=== PATIENT | male | born 1955 | race African-American/Black ===

== ENCOUNTER → 2017-05-07 | Outpatient (CLI) | payer BC | LOC: SLR 11:00 → EDSEX 11:00 | PROVIDERS: ATTEND Otolaryngology | DX: G47.30 Sleep apnea, unspecified (principal) | CPT/HCPCS: G0399 ==

== ENCOUNTER 2017-11-25 13:37 | Outpatient (CLI) | payer BC ==
--- NOTE | 2017-11-30 13:58 | Mammography Report ---
BILATERAL DIGITAL SCREENING MAMMOGRAM with CAD: 11/25/17 13:37:00 CLINICAL: Routine screening. COMPARISON:12/02/16 FINDINGS: There are scattered areas of fibroglandular density. No mass, architectural distortion or suspicious calcifications. IMPRESSION: No mammographic evidence of malignancy. BI-RADS CATEGORY: 2 -- Benign RECOMMENDATION: Routine mammographic screening in one year. COMMENT: Patient follow-up letters are generated by our [employer] application.
== END 2017-11-25 13:38 | disposition home or self-care (01) ==
LOC: SPVWC 13:37
DX: Z12.31 Encounter for screening mammogram for malignant neoplasm of breast (principal)
CPT/HCPCS: 77067